=== PATIENT | female | born 1990 | race Caucasian/White ===

== ENCOUNTER 2016-12-06 19:44 | Emergency (ER) | payer OTHER ==
--- NOTE | 2016-12-06 20:05 | ED Physician Documentation ---
Upper Respiratory Symptoms - HPI Chief Complaint: Cough/ Upper Respiratory Additional Information: 26 yo F with h/o HTn who present with sinus congestion and pressure associated with sore throat that started 4 days ago. No fever or chills reported. Pt reports yellowish nasal discharge. No sick contact reported. She initially thought it was allergy and took OTC medication without improvement. Onset: days ago Duration: sudden-Onset Severity: mild Associated Symptoms: sinus pain, sore throat Worsened by Deep Breath: No Further Comments: no - ROS CONST/EYES: other (none) CVS/RESP: none GI/: none - PAST HX Lung Disease: none PE Risk Factors: none Allergies/Adverse Reactions: Allergies Allergy/AdvReac Type Severity Reaction Status Date / Time citalopram hydrobromide Allergy Intermediate Nausea/Vomi Verified 12/06/16 20:09 [From Celexa] ting fluoxetine HCl [From Prozac] Allergy Verified 12/06/16 20:09 - SOCIAL HX Smoking History: non-smoker Alcohol Use: none Drug Use: none - FAMILY HX Family History: none - VITAL SIGNS Vital Signs: Vital Signs Temp Pulse Resp BP Pulse Ox 97.9 F 89 18 130/90 98 12/06/16 19:44 12/06/16 19:44 12/06/16 19:44 12/06/16 19:44 12/06/16 19:44 - REVIEWED ASSESSMENTS Nursing Assessment Reviewed: Yes Vitals Reviewed: Yes Progress - Progress Progress: here with sore throat with sinus congestion and pressure-- noted with bilateral maxillary tenderness and pharyngeal/tonsilar erythema -- consistent with sinusitis-- will go ahead and treat with antibiotics and steroid--Which i explain to pt that this could cause slight increase in her blood pressure for a short time. RST - noted negative -- Upper Respiratory Symptoms - EXAM General Appearance: no acute distress EENT: ear nml, pharyngeal erythema, other (maxillary sinus tenderness bilaterally) Neck: normal inspection Respiratory: no resp. distress Abdomen: non-tender CVS: reg rate & rhythm Skin: color nml, no rash Extremities: non-tender Neuro/Psych: oriented x3 Discharge Clincal Impression: Sinusitis Qualifiers: Sinusitis location: maxillary Chronicity: acute Recurrence: non-recurrent Qualified Code(s): J01.00 - Acute maxillary sinusitis, unspecified Referrals: Beach,Yola Kiara, FINISH PRODUCTION MANAGER [Primary Care Provider] - 2 Days Condition: Good Disposition: 01 HOME, SELF-CARE Decision to Admit: NO Decision Time: 20:10
[2016-12-06 20:23] VITALS: BP 119/34
== END 2016-12-06 20:16 | disposition home or self-care (01) ==
LOC: ED 19:44
DX: J01.00 Acute maxillary sinusitis, unspecified (principal)
CPT/HCPCS: 87070; 87880; 99283

== ENCOUNTER 2016-12-15 13:30 | Emergency (ER) | payer SELFPAY ==
[2016-12-15 14:05] VITALS: BP 119/34
--- NOTE | 2016-12-15 15:04 | ED Physician Documentation ---
General Adult - HISTORIAN Historian: patient - HPI Stated Complaint: right ear pain for 2 days now Chief Complaint: General Adult Additional Information: rt ear face neck pain. pt tx last week for sinusitis w/augmentin-sinus now better but rt ear pain ext rt neck--ant cerv lymph nodes w/ some rt clear ear drainage Onset: days ago (1 week-sinusitis now better but has ext rt ear) Timing: still present Severity: moderate Further Comments: yes (last dose augmentin today) - ROS CONST: recent illness EYES/ENT: none, problems with vision, nasal drainage (min). denies: sore throat CVS/RESP: none GI/: none MS/SKIN/LYMPH: neck pain, swollen glands - PAST HX Past History: hypertension Surgeries/Procedures: Allergies/Adverse Reactions: Allergies Allergy/AdvReac Type Severity Reaction Status Date / Time citalopram hydrobromide Allergy Intermediate Nausea/Vomi Verified 12/15/16 13:44 [From Celexa] ting fluoxetine HCl [From Prozac] Allergy Verified 12/15/16 13:44 Home Medications: Ambulatory Orders Medication Instructions Recorded Amoxicillin/Potassium Clav 1 tab PO BID 12/15/16 [Augmentin 875-125 Tablet] - SOCIAL HX Smoking History: non-smoker Alcohol Use: none Drug Use: none - FAMILY HX Family History: No - VITAL SIGNS Vital Signs: Vital Signs Temp Pulse Resp BP Pulse Ox 37.1 F L 95 H 20 132/77 97 12/15/16 13:39 12/15/16 13:39 12/15/16 13:39 12/15/16 13:39 12/15/16 13:39 - REVIEWED ASSESSMENTS Nursing Assessment Reviewed: Yes Vitals Reviewed: Yes General Adult Physical Exam - PHYSICAL EXAM GENERAL APPEARANCE: mild distress EENT: eye inspection normal. No: ENT inspection normal (slight inflam rt tm. wax - whitish in color lt ear clear w/yellow cerumen) NECK: lymphadenopathy RESPIRATORY: no resp distress, chest non-tender, breath sounds normal. No: wheezes, rales CVS: reg rate & rhythm, heart sounds normal ABDOMEN: soft, non-tender SKIN: warm/dry, normal color. No: cyanosis, diaphoresis, jaundice EXTREMITIES: non-tender, normal range of motion NEURO: oriented X3, motor nml, sensation nml, mood/affect nml Discharge Clincal Impression: sinusitis otitis Referrals: Yola Ludwig, DIRECTOR OF SOFTWARE DEVELOPMENT [Primary Care Provider] - 2 Days Home Medications: Ambulatory Orders Amoxicillin/Potassium Clav [Augmentin 875-125 Tablet] 1 tab PO BID 12/15/16 Condition: Good Disposition: 01 HOME, SELF-CARE Decision to Admit: NO ([id number]) Decision Time: 14:20
== END 2016-12-15 14:00 | disposition home or self-care (01) ==
LOC: ED 13:30
DX: H66.91 Otitis media, unspecified, right ear (principal); J32.9 Chronic sinusitis, unspecified
CPT/HCPCS: 99283

== ENCOUNTER 2017-08-13 10:28 | Outpatient (CLI) | payer BC, OTHER | END 2017-08-13 10:30 | LOC: LABRHC 10:28 | PROVIDERS: ATTEND Physician Assistant | DX: R10.84 Generalized abdominal pain (principal) | CPT/HCPCS: 87086 ==